=== PATIENT | female | born 1995 | race Caucasian/White ===

== ENCOUNTER 2019-04-25 16:50 | Emergency (ER) | payer BC ==
[2019-04-25 17:08] VITALS: BP 115/75
--- NOTE | 2019-04-25 17:24 | UC ---
Skin Complaint HPI - HPI Summary HPI Summary: 23-year-old female who has a very small rash to the right side of her face. She states that she was walking through [place] over the past couple days and she developed that as well as some very small areas of skin irritation on her cheeks. She states that she also has been a little more depressed over the past couple of weeks however she is on an antidepressant. She denies any suicidal ideation or homicidal ideation. She would like to start some counseling for issues of depression and she was given critical access hospital number for that. She also felt that her right preauricular lymph node is swollen. - History of Current Complaint Chief Complaint: UCGeneralIllness Time Seen by Provider: 04/25/19 16:57 Stated Complaint: SWOLLEN LYMPH NODE, FACIAL RASH Hx Obtained From: Patient Hx Last Menstrual Period: [id number] ?: No Onset/Duration: Gradual Onset Skin Exposure Onset/Duration: Days Ago - Over the past 2 days. Patient has been applying hydrocortisone cream with improvement. Onset Severity: Mild Current Severity: Mild Pain Intensity: 4 Location: Face - A very small rash to the right side of her face just on her lower facial cheek. Character: Pruritus, Raised Aggravating Factor(s): Nothing Alleviating Factor(s): OTC Meds Associated Signs & Symptoms: Positive: Negative - Allergy/Home Medications Allergies/Adverse Reactions: Allergies Allergy/AdvReac Type Severity Reaction Status Date / Time Penicillins Allergy Unknown Verified 04/25/19 17:10 Reaction Details Home Medications: Home Medications Citalopram TAB* [CeleXA TAB*] 10 mg PO DAILY 04/25/19 [History Confirmed ] Etonogest/Eth.estradiol (Nf) [Nuvaring Vaginal Ring] 1 each VAGINAL .SEE COMMENTS 04/25/19 [History Confirmed 04/25/19] Ferrous Gluconate [Iron] 324 mg PO DAILY 04/25/19 [History Confirmed 04/25/19] PMH/Surg Hx/FS Hx/Imm Hx Previously Healthy: Yes Psychological History: Depression - Surgical History Surgical History: None - Family History Known Family History: Positive: Non-Contributory - Social History Alcohol Use: Occasionally Substance Use Type: None Smoking Status (MU): Never Smoked Tobacco Review of Systems All Other Systems Reviewed And Are Negative: Yes Skin: Positive: Rash - Small rash on the right side of her cheek. Psychological: Positive: Depressed - Patient states that her feeling of depression has almost alleviated over the past couple of days. Is Patient Immunocompromised?: No Physical Exam Triage Information Reviewed: Yes Appearance: Well-Appearing, No Pain Distress, Well-Nourished Vital Signs: Initial Vital Signs Temp 98.1 F 04/25/19 17:00 Pulse 62 04/25/19 17:00 Resp 16 04/25/19 17:00 BP 115/75 04/25/19 17:00 Pulse Ox 100 04/25/19 17:00 Vital Signs Reviewed: Yes Eyes: Positive: Conjunctiva Clear ENT: Positive: Hearing grossly normal, Pharynx normal, TMs normal, Uvula midline Neck: Positive: Supple, Nontender, Enlarged Nodes @ - The right preauricular lymph node is minimally swollen nontender on palpation. Respiratory: Positive: Lungs clear, Normal breath sounds, No respiratory distress, No accessory muscle use Cardiovascular: Positive: RRR, No Murmur, Pulses Normal, Brisk Capillary Refill Musculoskeletal Exam: Normal Neurological Exam: Normal Psychological Exam: Normal Skin: Positive: Rashes - Very small contact dermatitis to the right cheek with minimal erythema. No active drainage. Course/Dx - Diagnoses Provider Diagnosis: Contact dermatitis Discharge - Sign-Out/Discharge Documenting (check all that apply): Patient Departure All imaging exams completed and their final reports reviewed: No Studies - Discharge Plan Condition: Good Disposition: HOME Patient Education Materials: Lyme Disease (ED), Contact Dermatitis (DC) Referrals: No Primary Care Phys,NOPCP [Primary Care Provider] - [facility] [Outside] Additional Instructions: You may apply a very small amount of hydrocortisone cream to the affected area twice a day. Follow-up with your primary care provider if no improvement in 4 or 5 days or follow up at the [facility]. We will call you with the results of the Lyme testing. - Billing Disposition and Condition Condition: GOOD Disposition: Home - Attestation Statements Provider Attestation: Per institutional requirements, I have reviewed the chart, however, I was not consulted specifically or made aware of this patient by the midlevel provider. I did not personally evaluate, interact with , or disposition this patient.
== END 2019-04-25 17:45 | disposition home or self-care (01) ==
LOC: UCEAST 16:50
DX: L25.9 Unspecified contact dermatitis, unspecified cause (principal); F32.9 Major depressive disorder, single episode, unspecified; Z88.0 Allergy status to penicillin
CPT/HCPCS: 36415; 86618; 99211; G0463

== ENCOUNTER 2024-03-05 14:44 | Inpatient (IN) ==
[2024-03-05 17:47] LABS: Urine Appearance Clear; Urine Bilirubin Negative (Negative); Urine Blood Negative (Negative); Urine Color Colorless; Urine Glucose Negative (Negative); Urine Ketones Negative (Negative); Urine Nitrite Negative (Negative); Urine Protein Negative (Negative); Urine Specific Gravity 1.006 (1.002-1.030); Urine Urobilinogen Negative (Negative)
[2024-03-05] MEDS: Prochlorperazine 5 mg/ml 2 ml VIAL (10 mg) IV PRN (22:53)
[2024-03-05] MEDS: Lactated Ringers 1000 ml BAG 1,000 ML IV ONE (22:54)
[2024-03-06 09:06] LABS: Hematocrit 34.4 % (35-45); Hemoglobin 11.5 g/dL (11.5-14.3); Mean Corpuscular Hemoglobin 29.1 pg (27-33); Mean Corpuscular Hgb Conc 33.5 g/dL (31-36); Mean Corpuscular Volume 87.1 fL (80-97); Mean Platelet Volume 10.6 fL (7.5-11.2); Platelet Count 175 10^3/uL (150-450); Red Blood Count 3.94 10^6/uL (3.63-4.92); Red Cell Distribution Width 13.8 % (12-17); White Blood Count 17.3 10^3/uL (3.8-11.8)
[2024-03-06] MEDS: Lidocaine 1% VIAL 10 MG/ML 30 ML VIAL INJ PRN (09:10)
[2024-03-06] MEDS: Oxytocin in LR 20,000 MILLI.UNIT/1,000 ML BAG IV SCH (09:10)
[2024-03-06 09:30] LABS: ABS Basophils 0.1 10^3/uL (0.0-0.1); ABS Lymphocytes 1.6 10^3/uL (1.0-4.8); ABS Monocytes 0.6 10^3/uL (0.0-0.9); ABS Nucleated RBC 0.02 10^3/ul; Eosinophil % 0.1 %; Lymphocyte % 9.1 %; Nucleated Red Blood Cells % 0.1 %/100WBC (0.0-0.8)
[2024-03-06] MEDS ORDERED: Glycerin ADULT 2.4 gm SUPP PR PRN (10:05)
[2024-03-06] MEDS ORDERED: Measles, Mumps,Rubella VACC 0.5 ML/VIAL SUBCUT ONE (10:05)
[2024-03-06] MEDS: Dibucaine 1% OINT 28.35 GM TUBE PR PRN (11:15)
[2024-03-06] MEDS: Witch Hazel PAD JAR TOPICAL PRN (11:15)
[2024-03-06] MEDS: Lactated Ringers 1000 ml BAG 1,000 ML IV SCH ×2 (17:55→17:56)
[2024-03-06] MEDS: Buffered Lidocaine 1% SYRIN 1 ml INTRADERM ONE (17:55)
[2024-03-06] MEDS: Oxytocin in LR 20,000 MILLI.UNIT/1,000 ML BAG IV ONE (17:56)
[2024-03-06] MEDS: Oxytocin in LR 0 MILLI.UNIT/0 ML BAG IV ONE (17:56)
[2024-03-06] MEDS: Lactated Ringers 1000 ml BAG 1,000 ML IV ONE (17:56)
[2024-03-07 07:19] LABS: ABS Lymphocytes 2.2 10^3/uL (1.0-4.8); ABS Monocytes 0.6 10^3/uL (0.0-0.9); ABS Neutrophils 9.8 10^3/uL (1.5-7.6); ABS Nucleated RBC 0.01 10^3/ul; Eosinophil % 0.2 %; Hematocrit 23.8 % (35-45); Hemoglobin 8.1 g/dL (11.5-14.3); Lymphocyte % 17.4 %; Mean Corpuscular Hemoglobin 29.4 pg (27-33); Mean Corpuscular Hgb Conc 34.2 g/dL (31-36); Platelet Count 141 10^3/uL (150-450); Red Blood Count 2.76 10^6/uL (3.63-4.92); Red Cell Distribution Width 13.9 % (12-17); White Blood Count 12.8 10^3/uL (3.8-11.8)
[2024-03-07] MEDS ORDERED: Iron Sucrose 20 MG/ML 5 ML VIAL IV PUSH ONE (09:44)
[2024-03-07] MEDS: Measles, Mumps,Rubella VACC 0.5 ML/VIAL SUBCUT ONE (11:58)
[2024-03-07 14:47] LABS: RPR Nonreactive (Nonreactive)
[2024-03-07] MEDS: Iron Sucrose 200 MG in NS 0.9% 100 ml IVPB ONE (15:46)
[2024-03-08 07:51] VITALS: BP 132/72
[2024-03-09 14:28] LABS: T.Pallidum TP-PA Negative (Negative)
== END 2024-03-08 11:45 | disposition home or self-care (01) | DRG 560 ==
LOC: MCHOBOUT 14:44 → MCHOB 03-06 06:21
PROVIDERS: ADMIT Advanced Practice Midwife